=== PATIENT | male | born 1950 | race Caucasian/White ===

== ENCOUNTER 2020-03-14 11:02 | Emergency (ER) | payer MEDICARE ==
[~2020-03-14] VITALS: Ht 180.3 cm; Wt 86.4 kg
[~2020-03-14 11:02] MED LIST: CEPH-571 PO; HYDR115S PO; LEVO500T89 PO; NITR0.4T51 SL
[2020-03-14 11:04] VITALS: BP 165/108
[2020-03-14 11:47] LABS: BASOPHILS # (AUTO) 0.1 X10'3 (0-0.2); BASOPHILS % (AUTO) 0.8 % (0-1); EOSINOPHILS # (AUTO) 0.3 X10'3 (0-0.9); EOSINOPHILS % (AUTO) 3.4 % (0-6); HEMATOCRIT 49.1 % (42.0-52.0); HEMOGLOBIN 16.5 g/dl (14.0-17.9); LYMPHOCYTES # (AUTO) 2.4 X10'3 (1.1-4.8); LYMPHOCYTES % (AUTO) 25.8 % (21-51); MEAN CORPUSCULAR HEMOGLOBIN 32.6 PG (27.0-31.0); MEAN CORPUSCULAR HGB CONC 33.7 g/dL (33.0-36.5); MEAN CORPUSCULAR VOLUME 96.7 FL (78-98); MEAN PLATELET VOLUME 6.8 FL (7.4-10.4); MONOCYTES # (AUTO) 0.9 X10'3 (0-0.9); MONOCYTES % (AUTO) 9.5 % (2-12); NEUTROPHILS # (AUTO) 5.6 X10'3 (1.8-7.7); NEUTROPHILS % (AUTO) 60.5 % (42-75); PLATELET COUNT 315 X10'3 (140-440); RED BLOOD COUNT 5.07 X10'6 (4.70-6.10); RED CELL DISTRIBUTION WIDTH 13.5 % (11.5-14.5); WHITE BLOOD COUNT 9.2 X10'3 (4.5-11.0)
[2020-03-14] MEDS ORDERED: SULF1TAB49 PO (12:01)
[2020-03-14] MEDS ORDERED: METR500T PO (12:01)
[2020-03-14 12:03] LABS: CLARITY,URINE CLEAR (Clear); COLOR,URINE YELLOW (Yellow); GLUCOSE, URINE NEGATIVE (Neg); KETONES,URINE NEGATIVE (Neg); LEUKOCYTE ESTERASE ,URINE NEGATIVE (Neg); NITRITES, URINE NEGATIVE (Neg); OCCULT BLOOD,URINE TRACE-INTACT (Neg); PH,URINE 5.5 (4.8-8.0); PROTEIN,URINE NEGATIVE (Neg); UROBILINOGEN,URINE 0.2 E.U/dL (0.2-1.0)
[2020-03-14 12:09] LABS: BACTERIA,URINE NONE SEEN /HPF (Neg); MUCUS STRANDS NONE SEEN /LPF (Neg); RBC,URINE NONE SEEN /HPF (0-2); SQUAMOUS EPITHELIAL CELL,UR NONE SEEN /LPF (FEW); UA COLLECTION TYPE URINAL; WBC,URINE NONE SEEN /HPF (0-4)
[2020-03-14 12:10] LABS: ALANINE AMINOTRANSFERASE 22 U/L (12-78); ALBUMIN 4.2 G/DL (3.4-5.0); ALBUMIN/GLOBULIN RATIO 1.1 (1.1-1.5); ALKALINE PHOSPHATASE 81 IU/L (46-116); ANION GAP 12 (8-16); ASPARTATE AMINO TRANSFERASE 19 U/L (10-37); BILIRUBIN,TOTAL 0.5 MG/DL (0.1-1.0); BLOOD UREA NITROGEN 19 MG/DL (7-18); BUN/CREATININE RATIO 20.2 (5.4-32.0); CALCIUM 9.6 MG/DL (8.5-10.1); CHLORIDE 103 MMOL/L (99-107); CREATININE 0.94 MG/DL (0.60-1.10); GLUCOSE 108 MG/DL (70-104); POTASSIUM 4.1 MMOL/L (3.5-5.1); SODIUM 139 MMOL/L (135-145); TOTAL CARBON DIOXIDE 23.8 MMOL/L (24-32); eGFR 80 ML/MIN
== END 2020-03-14 12:41 | disposition home or self-care (01) ==
LOC: ER 11:02
DX: R10.84 Generalized abdominal pain (principal); R11.10 Vomiting, unspecified; R10.32 Left lower quadrant pain; G89.29 Other chronic pain; Z90.49 Acquired absence of other specified parts of digestive tract; Z98.890 Other specified postprocedural states; Z88.0 Allergy status to penicillin; Z88.5 Allergy status to narcotic agent; Z91.048 Other nonmedicinal substance allergy status; Z79.2 Long term (current) use of antibiotics; Z79.899 Other long term (current) drug therapy
CPT/HCPCS: 36415; 80053; 81001; 85025; 99283

== ENCOUNTER 2021-01-25 10:41 | Emergency (ER) | payer MEDICARE ==
[~2021-01-25] VITALS: Ht 180.3 cm; Wt 83.8 kg
[2021-01-25] MEDS ORDERED: normal saline 1000ml 1,000 ML IV ONE (11:30)
[2021-01-25] MEDS ORDERED: proCHLORperazine 10 MG/2 ml inj IV ONE (11:30)
[2021-01-25] MEDS ORDERED: diphenhydrAMINE 50 mg/ml inj IV ONE (11:30)
[2021-01-25 11:45] LABS: BASOPHILS # (AUTO) 0.1 X10'3 (0-0.2); BASOPHILS % (AUTO) 0.8 % (0-1); EOSINOPHILS # (AUTO) 0.2 X10'3 (0-0.9); EOSINOPHILS % (AUTO) 2.2 % (0-6); HEMATOCRIT 46.9 % (42.0-52.0); HEMOGLOBIN 15.9 g/dl (14.0-17.9); LYMPHOCYTES # (AUTO) 1.8 X10'3 (1.1-4.8); LYMPHOCYTES % (AUTO) 25.6 % (21-51); MEAN CORPUSCULAR HEMOGLOBIN 32.3 PG (27.0-31.0); MEAN CORPUSCULAR HGB CONC 33.8 g/dL (33.0-36.5); MEAN CORPUSCULAR VOLUME 95.7 FL (78-98); MEAN PLATELET VOLUME 6.5 FL (7.4-10.4); MONOCYTES % (AUTO) 14.7 % (2-12); NEUTROPHILS % (AUTO) 56.7 % (42-75); PLATELET COUNT 318 X10'3 (140-440); RED BLOOD COUNT 4.91 X10'6 (4.70-6.10); RED CELL DISTRIBUTION WIDTH 13.8 % (11.5-14.5)
[2021-01-25] MEDS ORDERED: ondansetron/PF 4mg/2ml inj IV ONE (11:55)
[2021-01-25 12:04] LABS: ALANINE AMINOTRANSFERASE 23 U/L (12-78); ALBUMIN 4.1 G/DL (3.4-5.0); ALKALINE PHOSPHATASE 89 IU/L (46-116); ANION GAP 10 (8-16); ASPARTATE AMINO TRANSFERASE 18 U/L (10-37); BILIRUBIN,TOTAL 0.4 MG/DL (0.1-1.0); BLOOD UREA NITROGEN 16 MG/DL (7-18); BUN/CREATININE RATIO 19.3 (5.4-32.0); CALCIUM 9.5 MG/DL (8.5-10.1); CHLORIDE 101 MMOL/L (99-107); CREATININE 0.83 MG/DL (0.60-1.10); GLUCOSE 124 MG/DL (70-104); SODIUM 138 MMOL/L (135-145); TOTAL CARBON DIOXIDE 26.9 MMOL/L (24-32); TOTAL PROTEIN 8.1 G/DL (6.4-8.2); eGFR > 90 ML/MIN
[2021-01-25 12:05] LABS: CLARITY,URINE CLEAR (Clear); COLOR,URINE YELLOW (Yellow); GLUCOSE, URINE NEGATIVE (Neg); KETONES,URINE NEGATIVE (Neg); LEUKOCYTE ESTERASE ,URINE NEGATIVE (Neg); NITRITES, URINE NEGATIVE (Neg); OCCULT BLOOD,URINE NEGATIVE (Neg); PH,URINE 5.5 (4.8-8.0); PROTEIN,URINE NEGATIVE (Neg); UROBILINOGEN,URINE 0.2 E.U/dL (0.2-1.0)
[2021-01-25 12:14] LABS: UA COLLECTION TYPE CLN CATCH MIDSTREAM
[2021-01-25] MEDS ORDERED: ONDA4TAB6 PO (12:15)
[2021-01-25] MEDS ORDERED: ketorolac tromethamine 15mg/ml inj. IV ONE (12:15)
[2021-01-25 13:54] VITALS: BP 153/95
== END 2021-01-25 14:02 | disposition home or self-care (01) ==
LOC: ER 10:42
DX: R51.9 Headache, unspecified (principal); R11.2 Nausea with vomiting, unspecified; R42 Dizziness and giddiness; G89.29 Other chronic pain; Z90.49 Acquired absence of other specified parts of digestive tract; Z88.0 Allergy status to penicillin; Z88.8 Allergy status to other drugs, medicaments and biological substances; Z79.2 Long term (current) use of antibiotics; Z79.899 Other long term (current) drug therapy
CPT/HCPCS: 36415; 70450; 73130; 80053; 81003; 85025; 96361; 96374; 96375; 99285; J0780; J1200; J1885; J2405; J7030

== ENCOUNTER 2021-11-15 10:29 | Emergency (ER) | payer MEDICARE ==
[~2021-11-15] VITALS: Ht 180.3 cm; Wt 84.1 kg
[~2021-11-15 10:29] MED LIST changes: -LEVO500T89 PO; +LEVO500T90 PO; +ONDA4TAB6 PO
[2021-11-15 11:36] VITALS: BP 150/98
[2021-11-15 12:04] LABS: BASOPHILS # (AUTO) 0.1 X10'3 (0-0.2); BASOPHILS % (AUTO) 0.7 % (0-1); EOSINOPHILS # (AUTO) 0.2 X10'3 (0-0.9); EOSINOPHILS % (AUTO) 2.7 % (0-6); HEMATOCRIT 49.1 % (42.0-52.0); HEMOGLOBIN 16.8 g/dl (14.0-17.9); LYMPHOCYTES # (AUTO) 1.4 X10'3 (1.1-4.8); MEAN CORPUSCULAR HEMOGLOBIN 32.6 PG (27.0-31.0); MEAN CORPUSCULAR HGB CONC 34.2 g/dL (33.0-36.5); MEAN CORPUSCULAR VOLUME 95.1 FL (78-98); MEAN PLATELET VOLUME 6.7 FL (7.4-10.4); MONOCYTES # (AUTO) 0.7 X10'3 (0-0.9); MONOCYTES % (AUTO) 9.6 % (2-12); NEUTROPHILS # (AUTO) 4.5 X10'3 (1.8-7.7); PLATELET COUNT 339 X10'3 (140-440); RED BLOOD COUNT 5.16 X10'6 (4.70-6.10); RED CELL DISTRIBUTION WIDTH 13.9 % (11.5-14.5); WHITE BLOOD COUNT 6.8 X10'3 (4.5-11.0)
[2021-11-15 12:15] LABS: ALANINE AMINOTRANSFERASE 53 U/L (12-78); ALKALINE PHOSPHATASE 72 IU/L (46-116); ANION GAP 14 (8-16); ASPARTATE AMINO TRANSFERASE 30 U/L (10-37); BILIRUBIN,TOTAL 0.5 MG/DL (0.1-1.0); BLOOD UREA NITROGEN 13 MG/DL (7-18); BUN/CREATININE RATIO 15.1 (5.4-32.0); CALCIUM 9.3 MG/DL (8.5-10.1); CHLORIDE 102 MMOL/L (99-107); CREATININE 0.86 MG/DL (0.60-1.10); GLUCOSE 140 MG/DL (70-104); POTASSIUM 4.3 MMOL/L (3.5-5.1); SODIUM 139 MMOL/L (135-145); TOTAL CARBON DIOXIDE 23.5 MMOL/L (24-32); TOTAL PROTEIN 8.1 G/DL (6.4-8.2); eGFR 88 ML/MIN
[2021-11-15] MEDS ORDERED: iohexol 300mg/ml 100ml inj. ONE (14:42)
[2021-11-15] MEDS ORDERED: DICY10CA88 PO (19:30)
[2021-11-15] MEDS ORDERED: ketorolac tromethamine 15mg/ml inj. IV ONE (19:40)
[2021-11-15] MEDS ORDERED: ketorolac trometh. 30mg/ml inj. IV ONE (19:40)
== END 2021-11-15 19:48 | disposition home or self-care (01) ==
LOC: ER 10:31
DX: R10.32 Left lower quadrant pain (principal); R51.9 Headache, unspecified; R11.0 Nausea; Z88.0 Allergy status to penicillin; Z88.8 Allergy status to other drugs, medicaments and biological substances; Z79.2 Long term (current) use of antibiotics; Z79.899 Other long term (current) drug therapy; Z90.49 Acquired absence of other specified parts of digestive tract
CPT/HCPCS: 36415; 70450; 74178; 80053; 85025; 85610; 96374; 99285; J1885; Q9967

== ENCOUNTER 2022-05-17 12:07 | Day surgery (SDC) | payer MEDICARE ==
[2022-05-10 14:58] LABS: BASOPHILS # (AUTO) 0.1 X10'3 (0-0.2); BASOPHILS % (AUTO) 1.3 % (0-1); EOSINOPHILS # (AUTO) 0.3 X10'3 (0-0.9); LYMPHOCYTES # (AUTO) 2.8 X10'3 (1.1-4.8); LYMPHOCYTES % (AUTO) 41.9 % (21-51); MEAN CORPUSCULAR HEMOGLOBIN 31.5 PG (27.0-31.0); MEAN CORPUSCULAR HGB CONC 33.9 g/dL (33.0-36.5); MEAN CORPUSCULAR VOLUME 92.9 FL (78-98); MEAN PLATELET VOLUME 6.3 FL (7.4-10.4); MONOCYTES # (AUTO) 0.6 X10'3 (0-0.9); MONOCYTES % (AUTO) 8.9 % (2-12); NEUTROPHILS # (AUTO) 2.9 X10'3 (1.8-7.7); NEUTROPHILS % (AUTO) 42.9 % (42-75); PRE OP HEMATOCRIT 43.3 % (42.0-52.0); PRE OP HEMOGLOBIN 14.7 g/dL (14.0-17.9); PRE OP PLATELET COUNT 319 X10'3 (140-440); RED BLOOD COUNT 4.66 X10'6 (4.70-6.10); RED CELL DISTRIBUTION WIDTH 13.9 % (11.5-14.5)
[2022-05-10 15:26] LABS: ALBUMIN/GLOBULIN RATIO 1.1 (1.1-1.5); ALKALINE PHOSPHATASE 84 IU/L (46-116); BLOOD UREA NITROGEN 15 MG/DL (7-18); BUN/CREATININE RATIO 15.8 (5.4-32.0); CALCIUM 9.2 MG/DL (8.5-10.1); CHLORIDE 105 MMOL/L (99-107); CREATININE 0.95 MG/DL (0.60-1.10); PRE OP ALT 25 U/L (30-65); PRE OP ANION GAP 10 (8-16); PRE OP AST 20 U/L (10-37); PRE OP BILIRUB, TOTAL 0.4 MG/DL (0.0-1.0); PRE OP GLUCOSE 114 MG/DL (70-104); PRE OP POTASSIUM 4.2 MMOL/L (3.4-5.1); PRE OP SODIUM 144 MMOL/L (135-145); TOTAL CARBON DIOXIDE 29.5 MMOL/L (24-32); TOTAL PROTEIN 7.7 G/DL (6.4-8.2); eGFR 79 ML/MIN
[2022-05-17] VITALS (16 sets, daily range): BP systolic 130–175; BP diastolic 74–99
[~2022-05-17] VITALS: Ht 180.3 cm; Wt 87.3 kg
[~2022-05-17 12:07] MED LIST changes: -CEPH-571 PO; +HYDR-3972 PO; -HYDR115S PO; -LEVO500T90 PO; -NITR0.4T51 SL; -ONDA4TAB6 PO; +PANT40TA54 PO; +ceFAZolin inj. 2,000 MG in dextrose 5%-water 100 ML IV ONE; +famotidine 20mg tablet PO ONE; +ringers solution, lacted 1,000 ML IV SCH
[2022-05-17] MEDS ORDERED: LIDOcaine 1% 30ml preserv. free vial ONE (13:34)
[2022-05-17] MEDS ORDERED: BUPIVAcaine 0.5% inj/PF 30 ML ONE ×2 (13:34→13:38)
[2022-05-17] MEDS ORDERED: BUPIVACAINE liposomal/PF 13.3 MG/ML vial IM ONE (13:38)
[2022-05-17] MEDS ORDERED: fentaNYL/PF 50MCG/1 ML 2ML syringe ONE (13:48)
[2022-05-17] MEDS ORDERED: sevoflurane 250ml liquid IH ONE (13:48)
[2022-05-17] MEDS ORDERED: propofol inj 20 ML IV ONE (13:48)
[2022-05-17] MEDS ORDERED: midazolam 1 mg/ML 2ml injection ONE (13:48)
[2022-05-17] MEDS ORDERED: rocuronium 10mg/ml inj IV ONE (13:48)
[2022-05-17] MEDS ORDERED: proCHLORperazine 10 MG/2 ml inj IV PRN (14:25)
[2022-05-17] MEDS ORDERED: ringers solution, lacted 1,000 ML IV SCH (14:25)
[2022-05-17] MEDS ORDERED: ondansetron/PF 4mg/2ml inj IV PRN (14:25)
[2022-05-17] MEDS ORDERED: morphine 4 MG/ML inj SYRINge IV PRN (14:25)
[2022-05-17] MEDS ORDERED: meperidine/PF 25mg/ml syringe IV PRN ×3 (14:25)
[2022-05-17] MEDS ORDERED: morphine 2 MG/ML inj. syringe IV PRN (14:25)
[2022-05-17] MEDS ORDERED: dexamethasone sod phosphate 4mg/ml inj. ONE (14:59)
[2022-05-17] MEDS ORDERED: ondansetron/PF 4mg/2ml inj ONE (14:59)
[2022-05-17] MEDS ORDERED: neostigmine methylsulfate 1 MG/ML 10ml vial ONE (15:01)
[2022-05-17] MEDS ORDERED: glycopyrrolate 0.2mg/ml inj ONE (15:01)
[2022-05-17] MEDS ORDERED: HYDROcodone/acetaminophen 10/325mg tab PO PRN (15:20)
--- NOTE | 2022-05-17 15:22 | NUR ---
Received from OR via [facility] , accompanied by Anesthesiologist DR TAY and report given by Anesthesiolgist. PT PRESENTS WITH PIV 20G RIGHT FOREARM. ABD DRESSDING CDI. VSS. Addendum: 05/17/22 at 1537 by Sandi Karimi RN, RN Amended: Links added.
[2022-05-17] MEDS ORDERED: hydrALAZINE 20mg/ml inj. IV PRN (15:35)
--- NOTE | 2022-05-17 17:42 | NUR ---
I HAVE REVIEWED D/C INSTRUCTIONS WITH PATIENT AND THEY HAVE VERBALIZED UNDERSTANDING OF INSTRUCTIONS. PATIENT D/C HOME WITH ALL BELONGINGS AND FAMILY GAVE TRANSPORT Addendum: 05/17/22 at 1747 by Sandi Karimi RN, RN Amended: Links added.
== END 2022-05-17 17:42 | disposition home or self-care (01) ==
LOC: PRE-OP 12:07
PROVIDERS: ATTEND Surgery
DX: R10.32 Left lower quadrant pain (principal); K42.9 Umbilical hernia without obstruction or gangrene; D17.79 Benign lipomatous neoplasm of other sites; M19.90 Unspecified osteoarthritis, unspecified site; Z90.49 Acquired absence of other specified parts of digestive tract; Z98.890 Other specified postprocedural states; Z79.899 Other long term (current) drug therapy; Z88.5 Allergy status to narcotic agent; Z82.49 Family history of ischemic heart disease and other diseases of the circulatory system; Z82.3 Family history of stroke; Z83.3 Family history of diabetes mellitus
CPT/HCPCS: 36415; 49652; 64488; 80053; 82948; 85025; 93005; C1758; C9290; J0360; J0690; J1100; J2175; J2250; J2405; J2704; J2710; J3010; J3490; J7030; J7060; J7120; S0020; Z7506; Z7508; Z7512; A4215; A4618

== ENCOUNTER 2024-09-17 12:13 | Outpatient (CLI) | payer MEDICARE ==
[~2024-09-17 12:13] MED LIST changes: -ceFAZolin inj. 2,000 MG in dextrose 5%-water 100 ML IV ONE; -famotidine 20mg tablet PO ONE; -ringers solution, lacted 1,000 ML IV SCH
== END 2024-09-17 23:59 | disposition home or self-care (01) ==
LOC: MRI02 12:13
PROVIDERS: ATTEND Nurse Practitioner Adult Health
DX: M51.379 Other intervertebral disc degeneration, lumbosacral region without mention of lumbar back pain or lower extremity pain (principal); M47.816 Spondylosis without myelopathy or radiculopathy, lumbar region; M46.1 Sacroiliitis, not elsewhere classified; M48.07 Spinal stenosis, lumbosacral region
CPT/HCPCS: 72148